=== PATIENT | female | born 1940 | race Caucasian/White ===

== ENCOUNTER → 2019-12-18 | Outpatient (CLI) | payer MEDICARE ==
[~2019-12-18] MED LIST: ASCO10004 PO; ASPI-496 PO; CHOL500015 PO; ESTR0.5T PO; FLEC50TA25 PO; LACT1CAP35 PO; LEVO125T5 PO; UBID100C24 PO; VITA400T6 PO; [UNRECOGNIZED DRUG - CODE] PO
== END | disposition home or self-care (01) ==
LOC: CVU 10:21
PROVIDERS: ATTEND Internal Medicine Cardiovascular Disease
DX: I36.1 Nonrheumatic tricuspid (valve) insufficiency (principal); I48.0 Paroxysmal atrial fibrillation
CPT/HCPCS: 93306